=== PATIENT | female | born 1990 | race Caucasian/White ===

== ENCOUNTER 2024-11-11 05:04 | Emergency (ER) | payer OTHER ==
[~2024-11-11] VITALS: Ht 162.6 cm; Wt 69.5 kg
[2024-11-11 05:10] VITALS: BP 118/53; PULSE 77; RESP 18; TEMP 97.6; O2SAT 98
== END 2024-11-11 06:28 | disposition home or self-care (01) ==
LOC: ER 05:05
DX: Z77.21 Contact with and (suspected) exposure to potentially hazardous body fluids (principal)
CPT/HCPCS: 99281